=== PATIENT | male | born 1995 | race Caucasian/White ===

== ENCOUNTER → 2017-05-18 | Outpatient (CLI) | payer MEDICARE, OTHER ==
[~2017-05-18] MED LIST: CALCIUM CA500 MG/5 M DOB; CALMOSEPTINE O3.5 GM TOP; CENTRUM MU9 MG/15 ML DOB; CETIRIZINE HCL10 MG DOB; CHLORHEXIDINE 4% TOP; DEEP SEA NASAL SPRAY INH; DIASTAT10 MG PR; DRISDOL8000 U/ML DOB; FLONASE ALLERG9.9 ML INH; MUPIROCIN0.9 GM TOP; POLYETHYLENE GLYCOL DOB; TYLENOL325 M1 DOB; ZANTAC PO; [UNRECOGNIZED DRUG - OTHER] TOP; [UNRECOGNIZED DRUG - OTHER] TOP
== END | disposition home or self-care (01) ==
LOC: CSSDAY 10:21
DX: M81.8 Other osteoporosis without current pathological fracture (principal); E03.9 Hypothyroidism, unspecified
CPT/HCPCS: 96372; J0897